=== PATIENT | female | born 1965 | race American Indian/Alaskan Native ===

== ENCOUNTER 2020-05-14 14:41 | Emergency (ER) | payer BC ==
[2020-05-14] MEDS ORDERED: traMADol 50 MG TAB PO ONE (16:48)
--- NOTE | 2020-05-14 17:34 | XRay Report ---
RIGHT SHOULDER 3 VIEWS INDICATION / CLINICAL INFORMATION: MAIN. COMPARISON: None available. FINDINGS: No significant skeletal abnormality Signer Name: Tolu Rhoades MD FACR Signed: 05/14/2020 5:30 PM Workstation Name: [id number]
--- NOTE | 2020-05-14 17:35 | XRay Report ---
CERVICAL SPINE 4 VIEWS INDICATION / CLINICAL INFORMATION: MAIN. COMPARISON: None available. FINDINGS: Mild degenerative change in the mid cervical region. No other significant skeletal abnormality. Align ment is normal. Signer Name: Tolu Rhoades MD FACR Signed: 05/14/2020 5:30 PM Workstation Name: [id number]
--- NOTE | 2020-05-14 17:37 | XRay Report ---
LUMBAR SPINE 3 VIEWS INDICATION / CLINICAL INFORMATION: MAIN. COMPARISON: None available. FINDINGS: No significant skeletal abnormality. Alignment is normal. Signer Name: Tolu Rhoades MD FACR Signed: 05/14/2020 5:33 PM Workstation Name: [email or web address]
[2020-05-14 17:44] VITALS: BP 163/81
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
== END 2020-05-14 18:13 | disposition home or self-care (01) ==
LOC: ED 14:41
DX: S13.4XXA Sprain of ligaments of cervical spine, initial encounter (principal); S46.911A Strain of unspecified muscle, fascia and tendon at shoulder and upper arm level, right arm, initial encounter; S39.012A Strain of muscle, fascia and tendon of lower back, initial encounter; Z98.51 Tubal ligation status; Z79.1 Long term (current) use of non-steroidal anti-inflammatories (NSAID); Z79.2 Long term (current) use of antibiotics; Z79.899 Other long term (current) drug therapy; Z91.040 Latex allergy status; Z88.8 Allergy status to other drugs, medicaments and biological substances; V49.49XA Driver injured in collision with other motor vehicles in traffic accident, initial encounter; Y93.89 Activity, other specified; Y92.410 Unspecified street and highway as the place of occurrence of the external cause; Y99.8 Other external cause status
CPT/HCPCS: 72040; 72100

== ENCOUNTER 2020-11-11 09:57 | Emergency (ER) | payer OTHER, BC ==
[2020-11-11] MEDS ORDERED: dexAMETHasone 20 MG/5 ML VIAL IM ONE (11:03)
[2020-11-11] MEDS ORDERED: oxyCODONE /ACETAMINOPHEN 5-325MG TAB PO ONE (11:03)
[2020-11-11] MEDS ORDERED: KETOROLAC 30 MG/1 ML INJ IM ONE (11:03)
[2020-11-11 11:04] VITALS: BP 148/62
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
[2020-11-11 12:31] LABS: Bilirubin,Urine NEG (Negative); Blood,Urine NEG (Negative); Color,Urine Yellow (Yellow); Mucus,Urine FEW /HPF; Protein,Urine <15 mg/dL mg/dL (Negative); Urobilinogen,Urine < 2.0 mg/dL (<2.0)
--- NOTE | 2020-11-11 13:51 | XRay Report ---
LUMBAR SPINE 3 VIEWS INDICATION / CLINICAL INFORMATION: Acute on chronic pain. COMPARISON: 05/14/2020. FINDINGS: VERTEBRAE: No acute fracture. No significant malalignment. DISC SPACES / FACET JOINTS:No significant abnormality. PARASPINAL SOFT TISSUES:No significant abnormality. ADDITIONAL FINDINGS: None. Signer Name: Darin Rhoades MD Signed: 11/11/2020 1:47 PM Workstation Name: [id number]
== END 2020-11-11 14:25 | disposition home or self-care (01) ==
LOC: ED 09:57
DX: M54.5 Low back pain (principal); G89.29 Other chronic pain; R35.0 Frequency of micturition; Z79.899 Other long term (current) drug therapy; Z88.8 Allergy status to other drugs, medicaments and biological substances; Z91.040 Latex allergy status; Z98.51 Tubal ligation status
CPT/HCPCS: 72100; 81001; 96372; 99283; J1100; J1885

== ENCOUNTER 2021-06-26 19:30 | Emergency (ER) | payer BC ==
[2021-06-26 19:51] VITALS: BP 116/72
[2021-06-26] MEDS ORDERED: predniSONE 20 MG TAB PO ONE (20:31)
[2021-06-26] MEDS ORDERED: KETOROLAC 30 MG/1 ML INJ IM ONE (20:31)
--- NOTE | 2021-06-26 20:32 | Emergency Department Report ---
ED General Adult HPI - General Chief complaint: Extremity Injury, Lower Stated complaint: ABDOMINAL PAIN Time Seen by Provider: 06/26/21 20:25 Source: patient Mode of arrival: Ambulatory Limitations: No Limitations - History of Present Illness Initial comments: This 55-year-old -[place] female who presents for low back pain radiating to right lower leg. States history of sciatica for the last year. Currently taking muscle relaxants and NSAIDs. Patient denies new fall injury or trauma. There is been no numbness no tingling no paralysis. There is been no loss or decrease in bowel or bladder function. Patient states she has been unable to see her PCP. Pain today is 5/10 burning stinging. Radiating through right thigh. Pain is exacerbated by prolonged standing and bending and twisting. Pain is relieved by nothing tried. Pain is in same location duration and intensity as previous pain complaint. Dysuria urgency frequency or hem aturia. No fevers or chills no dizziness or headache. - Related Data Previous Rx's Medication Instructions Recorded Last Taken Type HYDROcodone/ACETAMINOPHEN [[place] 1 each PO Q6HR PRN #25 tablet 02/05/14 Unknown Rx 5/325 Tablet] Ibuprofen [Motrin] 600 mg PO Q8H PRN #60 tablet 02/05/14 Unknown Rx Loratadine (Nf) [Claritin] 10 mg PO DAILY #30 tablet 02/05/14 Unknown Rx RX: Penicillin Vk [Veetids TAB] 500 mg PO QID #40 tablet 02/05/14 Unknown Rx Cyclobenzaprine [Flexeril] 10 mg PO QHS PRN #10 tablet 05/14/20 Unknown Rx RX: Naproxen 500 mg PO Q12H PRN #12 tablet 05/14/20 Unknown Rx Acetaminophen/Codeine [Tylenol 1 tab PO Q8HR PRN #8 tablet 11/11/20 Unknown Rx /Codeine # 3 tab] RX: Cyclobenzaprine [Flexeril 10 10 mg PO TID PRN #20 tablet 11/11/20 Unknown Rx MG TAB] RX: Diclofenac Sodium 75 mg PO BID PRN #14 tablet. 11/11/20 Unknown Rx Menthol/Camphor [[place] 1 applicatio TP QID PRN #1 tube 06/26/21 Unknown Rx Ointment] RX: Timothy Cardenas [Laury Cardenas] 75 mg PO TID PRN #30 tablet 06/26/21 Unknown Rx RX: predniSONE 10 mg PO .TAPER #21 tab 06/26/21 Unknown Rx Allergies Allergy/AdvReac Type Severity Reaction Status Date / Time acetaminophen [From Tylenol] Allergy Shortness Verified 06/26/21 19:52 of Breath latex Allergy Rash Verified 06/26/21 19:52 nystatin Allergy Rash Verified 06/26/21 19:52 ED Review of Systems ROS: Stated complaint: ABDOMINAL PAIN Other details as noted in HPI Constitutional: denies: chills, fever Eyes: denies: eye pain, eye discharge, vision change ENT: denies: ear pain, throat pain Respiratory: denies: cough, shortness of breath, wheezing Cardiovascular: denies: chest pain, palpitations Endocrine: no symptoms reported Gastrointestinal: denies: abdominal pain, nausea, diarrhea Genitourinary: denies: urgency, dysuria, discharge Musculoskeletal: back pain, myalgia, other (Right lower extremity pain right lower extremity pain) Skin: denies: rash, lesions Neurological: denies: headache, weakness, paresthesias Psychiatric: denies: anxiety, depression Hematological/Lymphatic: denies: easy bleeding, easy bruising ED Past Medical Hx - Past Medical History Additional medical history: nerve damage right hand 2007. dysmenorrhea - Surgical History Additional Surgical History: tubal ligation 1987 - Social History Smoking Status: Never Smoker Substance Use Type: None - Medications Home Medications: Home Medications Medication Instructions Recorded Confirmed Last Taken Type HYDROcodone/ACETAMINOPHEN [[place] 1 each PO Q6HR PRN #25 tablet 02/05/14 Unknown Rx 5/325 Tablet] Ibuprofen [Motrin] 600 mg PO Q8H PRN #60 tablet 02/05/14 Unknown Rx Loratadine (Nf) [Claritin] 10 mg PO DAILY #30 tablet 02/05/14 Unknown Rx RX: Penicillin Vk [Veetids TAB] 500 mg PO QID #40 tablet 02/05/14 Unknown Rx Cyclobenzaprine [Flexeril] 10 mg PO QHS PRN #10 tablet 05/14/20 Unknown Rx RX: Naproxen 500 mg PO Q12H PRN #12 tablet 05/14/20 Unknown Rx Acetaminophen/Codeine [Tylenol 1 tab PO Q8HR PRN #8 tablet 11/11/20 Unknown Rx /Codeine # 3 tab] RX: Cyclobenzaprine [Flexeril 10 10 mg PO TID PRN #20 tablet 11/11/20 Unknown Rx MG TAB] RX: Diclofenac Sodium 75 mg PO BID PRN #14 tablet. 11/11/20 Unknown Rx Menthol/Camphor [[place] 1 applicatio TP QID PRN #1 tube 06/26/21 Unknown Rx Ointment] RX: Diclofenac Dr [Laury Cardenas] 75 mg PO TID PRN #30 tablet 06/26/21 Unknown Rx RX: predniSONE 10 mg PO .TAPER #21 tab 06/26/21 Unknown Rx ED Physical Exam - General Limitations: No Limitations General appearance: alert, in no apparent distress - Head Head exam: Present: normocephalic, normal inspection - Eye Eye exam: Present: normal appearance, EOMI Pupils: Present: normal accommodation - ENT ENT exam: Present: mucous membranes moist - Neck Neck exam: Present: normal inspection, full ROM. Absent: tenderness - Respiratory Respiratory exam: Present: normal lung sounds bilaterally. Absent: respiratory distress, wheezes, stridor - Cardiovascular Cardiovascular Exam: Present: regular rate, normal rhythm, normal heart sounds. Absent: systolic murmur, diastolic murmur, rubs, gallop - GI/Abdominal GI/Abdominal exam: Present: soft, normal bowel sounds. Absent: distended, tenderness, guarding, rebound, rigid, bruit, hernia - Rectal Rectal exam: Present: deferred - Extremities Exam Extremities exam: Present: full ROM, tenderness (Right sciatic notch), normal capillary refill - Back Exam Back exam: Present: normal inspection, full ROM, tenderness (Right sciatic notch as above). Absent: vertebral tenderness, rash noted - Expanded Back Exam Expanded Back exam: Absent: saddle anesthesia Back exam: Positive Straight Leg Raise: Right, Negative Straight Leg Raising: Left - Neurological Exam Neurological exam: Present: alert, oriented X3, CN II-XII intact, normal gait, reflexes normal. Absent: motor sensory deficit - Expanded Neurological Exam Expanded Patient oriented to: Present: person, place, time Speech: Present: fluid speech Motor strength exam: RUE: 5, LUE: 5, RLE: 5, LLE: 5 DTR: knee (R): 1+, knee (L): 1+ Best Eye Response ([place]): (4) open spontaneously Best Motor Response (Damian): (6) obeys commands Best Verbal Response ([place]): (5) oriented Damian Total: 15 - Psychiatric Psychiatric exam: Present: normal affect, normal mood - Skin Skin exam: Present: warm, dry, intact, normal color. Absent: rash ED Course Vital Signs 06/26/21 19:46 Temperature 98.3 F Pulse Rate 79 Respiratory 18 Rate Blood Pressure 116/72 [Right] O2 Sat by Pulse 98 Oximetry ED Medical Decision Making - Medical Decision Making There is no posterior vertebral point tenderness. There is pain through sciatic notch. That radiates to lower leg. However range of motion is intact and unrestricted strength is 5 5 distal pulses are intact. There is been no loss or decrease in bowel or bladder function. Patient does have orthopedics. Pain is improved with medication given in ED including prednisone and Toradol IM. Plan DC to home patient will continue muscle action, NSAIDs, moist heat therapy, follow-up orthopedics as scheduled. Patient verbalized agreement and understanding with discharge plan. Patient DC'd home in stable condition at this time. Patient is currently alert oriented x3 amatory with steady gait. Critical care attestation.: If time is entered above; I have spent that time in minutes in the direct care of this critically ill patient, excluding procedure time. ED Disposition Clinical Impression: Sciatica Qualifiers: Laterality: right Qualified Code(s): M54.31 - Sciatica, right side Disposition: 01 HOME / SELF CARE / HOMELESS Is pt being admited?: No Does the pt Need Aspirin: No Condition: Stable Instructions: Sciatica, [id number], Sciatica Rehab-SportsMed Additional Instructions: Take medications as prescribed, moist heat therapy as directed, follow-up with orthopedic surgery in 2 to 3 days. Return to emergency department should symptoms worsen. Prescriptions: RX: predniSONE 10 mg PO .TAPER #21 tab Menthol/Camphor [[place] Ointment] 1 applicatio TP QID PRN #1 tube PRN Reason: pain RX: Diclofenac [Voltaren ] 75 mg PO TID PRN #30 tablet PRN Reason: pain Referrals: DAMIAN NIETO MD [Staff Physician] - 3-5 Days Forms: Work/School Release Form(ED) Time of Disposition: 20:56
== END 2021-06-26 21:25 | disposition home or self-care (01) ==
LOC: ED 19:30
DX: M54.31 Sciatica, right side (principal); Z91.040 Latex allergy status; Z88.8 Allergy status to other drugs, medicaments and biological substances
CPT/HCPCS: 96372; 99282; J1885; J7512